=== PATIENT | female | born 1990 | race Hispanic/Latino ===

== ENCOUNTER 2018-07-16 22:05 | Day surgery (SDC) | payer OTHER ==
[2018-07-16 23:17] VITALS: BP 102/59; TEMP 98.9; BMI 28.0
[2018-07-17 01:03] LABS: #Basophils 0.1 thou/uL (0.0-0.2); #Eosinphils 0.3 thou/uL (0.0-0.7); #Lymphocytes 1.6 thou/uL (1.20-3.40); #Monocytes 0.6 thou/uL (0.11-0.59); #Neutrophils 9.3 thou/uL (1.40-6.50); %Basophils 0.4 % (0.0-1.0); %Eosinophils 2.9 % (0.0-10.0); %Lymphocytes 13.2 % (21.0-51.0); %Neutrophils 78.4 % (42.0-75.0); Mean Corpuscular HGB CONC 35.2 g/dL (32.0-36.0); Mean Corpuscular Hemoglobin 31.3 pg (27.0-31.0); Mean Corpuscular Volume 88.9 fL (78.0-98.0); Mean Platelet Volume 8.4 fL (7.4-10.4); Platelet Count 225 thou/uL (130-400); RBC Distribution Width 12.5 % (11.5-14.5); Red Blood Cell (RBC) Count 3.83 mill/uL (4.20-5.40); White Blood Cell (WBC) Count 11.9 thou/uL (4.8-10.8)
[2018-07-17 01:27] LABS: ALT (SGPT) Less than 7 U/L (8-55); AST (SGOT) 13 U/L (5-34); Albumin 3.3 g/dL (3.5-5.0); Alkaline Phosphatase 66 U/L (40-150); Anion Gap 11 mmol/L (10-20); BUN (Urea Nitrogen) 8 mg/dL (7.0-18.7); Bilirubin, Total 0.3 mg/dL (0.2-1.2); Calc. Creatinine Clearance 169 mL/min (70-130); Calcium 8.7 mg/dL (7.8-10.44); Carbon Dioxide 22 mmol/L (22-29); Chloride 106 mmol/L (98-107); Estimated GFR-MDRD Greater than 90; Globulin 3.1 g/dL (2.4-3.5); Glucose 97 mg/dL (70-105); Lipase 15 U/L (8-78); Potassium 3.8 mmol/L (3.5-5.1); Protein, Total 6.4 g/dL (6.0-8.3); Sodium 135 mmol/L (136-145)
--- NOTE | 2018-07-17 11:38 | ULT ---
PRELIMINARY REPORT/[facility]/EMERGENTY AFTER-HOURS PROCEDURE US Abdomen Complete EXAM DATE/TIME: 07/17/2018 12:44 AM CLINICAL HISTORY: 27 years old, female; Pain and signs and symptoms; Nausea and vomiting; Abdominal pain; Epigastric; P regnant; Patient HX: Epigastric pain, n/v; Additional info: Patient 24 wks TECHNIQUE: Real-time ultrasound of the abdomen with image documentation. COMPARISON: No relevant prior studies available. FINDINGS: Liver: Normal. No mass. Gallbladder: Normal. No gallstones. There is not gallbladder wall thickening. Common bile duct: Normal. No stones. No dilation. Pancreas: Normal. No ductal dilation. Kidneys: Normal. No mass. No hydronephrosis. Spleen: Normal. No splenomegaly. Aorta: Normal. No aneurysm. Inferior vena cava: Normal. IMPRESSION: No acute findings. Thank you for allowing us to participate in the care of your patient. Dictated and Authenticated by: Moe Andrade MD 07/17/2018 2:04 AM Central Time ([place] & [place]) FINAL REPORT EMERGENT AFTER HOURS STUDY COMPLETE ABDOMEN ULTRASOUND: 07/17/2018 12:45 a.m. FINDINGS: No evidence of gallstones or other significant acute process. Agree with [facility]. POS: [facility]
--- NOTE | 2018-07-20 02:02 | PRG ---
DATE OF SERVICE: 07/16/2018 PRIMARY OB: Devang Copeland M.D. CHIEF COMPLAINT: Abdominal pain. HISTORY OF PRESENT ILLNESS: The patient is a 27-year-old female with an intrauterine at 24 weeks who is presenting to Labor and Delivery with acute onset of epigastric pain with nausea and vomiting. The patient reports that she has had similar symptoms with previous pregnancies and is unsure what she should be concerned. The patient denies uterine contractions or other lower abdomin al pain. Pain is reported to be in her epigastric to right upper quadrant area and radiates to her b ack. The patient denies fever, headache, chest pain, shortness of breath, diarrhea, constipation, hi p problems, knee problems, or muscle weakness. PAST MEDICAL HISTORY: Negative. PAST SURGICAL HISTORY: Noncontributory. The patient still has a gallbladder. ALLERGIES: No known drug allergies. MEDICATIONS: vitamins. PHYSICAL EXAMINATION: VITAL SIGNS: Blood pressure 102/59, heart rate 63, temperature 98.9. GENERAL: She appeared to be in no acute distress. She is alert and oriented, cooperative and pleasa nt to interact with. HEENT: Normocephalic, atraumatic. LUNGS: Clear. HEART: Regular rate and rhythm. ABDOMEN: The patient has some epigastric and right upper quadrant tenderness to deep palpation. Abd omen is soft. No tenderness in her lower abdomen or inguinal region. CARDIOVASCULAR: Heart has regular rate and rhythm. heart tracing demonstrated a fetus with baseline in the 130s with moderate long-term variabilit y, appropriate for 24-week gestation. Tocometer was absent with contractions. Right upper quadrant ultrasound was performed showing no evidence of gallstones or the gallbladder di sease. LFTs within normal limits as well as alkaline phosphatase. Amylase and lipase are also within normal limits. ASSESSMENT AND PLAN: Patient is a 27-year-old female with some acute onset of abdominal pain that byrd s spontaneously resolved, here with evaluation. She denies any abdominal pain at reevaluation. Ther e is no evidence of gallstones at this time. The patient has been given labor precautions an d food restrictions. The patient has instructions to follow up with Dr. Devang Copeland as scheduled.
== END 2018-07-17 02:06 | disposition home or self-care (01) ==
LOC: L&D/OP 22:05
PROVIDERS: ATTEND Family Medicine
DX: O99.89 Other specified diseases and conditions complicating pregnancy, childbirth and the puerperium (principal); R10.13 Epigastric pain; Z3A.24 24 weeks gestation of pregnancy; Z79.899 Other long term (current) drug therapy
CPT/HCPCS: 36415; 76705; 80053; 82150; 83690; 85025

== ENCOUNTER 2018-09-13 07:27 | Outpatient (CLI) | payer OTHER ==
--- NOTE | 2018-09-13 08:31 | ULT ---
OB ULTRASOUND LIMITED: INDICATION: Low-lying placenta. FINDINGS: Intrauterine gestation in a cephalad orientation is documented. No evidence of placenta previa. Cer vical length is approximately 4 cm. The visualized inferior aspect of the placenta is located approx imately 3 cm from the internal os. cardiac activity is documented ranging 126-134 b.p.m. IMPRESSION: Cephalad orientation of the fetus. There is no placenta previa. The imaged inferior aspect of the p lacenta is approximately 3 cm from the internal os. Cervical length is approximately 4 cm. As necessary, imaging followup may be obtained. POS: [facility]
== END 2018-09-13 07:28 | disposition home or self-care (01) ==
LOC: BICULT 07:27
PROVIDERS: ATTEND Family Medicine
DX: O44.42 Low lying placenta NOS or without hemorrhage, second trimester (principal)
CPT/HCPCS: 76815

== ENCOUNTER 2018-11-03 21:00 | Inpatient (IN) | payer MEDICAID, OTHER, SELFPAY ==
[2018-11-08] MEDS ORDERED: Penicillin G Potassium 5 MILL.UNITS in Sodium Chloride 0.9% 100 ML IVPB SCH (06:16)
[2018-11-08] MEDS ORDERED: Lidocaine 1% (PF) 30 ML VIAL SC PRN (06:16)
[2018-11-08] MEDS ORDERED: Diphenoxylate HCl/Atropine Tablet PO PRN (06:16)
[2018-11-08] MEDS ORDERED: HYDROcodone/Acetaminophen 5/325 mg Tablet PO PRN (06:16)
[2018-11-08] MEDS ORDERED: Butorphanol Tartrate 1 MG/ML VIAL SLOW IVP PRN (06:16)
[2018-11-08] MEDS ORDERED: Misoprostol 200 MCG TAB PR PRN (06:16)
[2018-11-08] MEDS ORDERED: Carboprost 250 MCG/ML AMP IM PRN (06:16)
[2018-11-08] MEDS ORDERED: Ibuprofen 800 MG TAB PO PRN (06:16)
[2018-11-08] MEDS ORDERED: NS / Oxytocin 40 units/1000ml 1,000 ML IV PRN (06:16)
[2018-11-08] MEDS ORDERED: Methylergonovine 0.2 MG/ML VIAL IM PRN (06:16)
[2018-11-08] MEDS ORDERED: Ondansetron PF 4 MG/2 ML Vial IVP PRN (06:16)
[2018-11-08] MEDS ORDERED: NS w/ Oxytocin 10 units 500 ML IV SCH ×2 (06:16)
[2018-11-08 06:17] VITALS: BMI 31.3
[2018-11-08 06:40] LABS: Hemoglobin 12.6 g/dL (12.0-16.0); Mean Corpuscular HGB CONC 33.6 g/dL (32.0-36.0); Mean Corpuscular Volume 86.3 fL (78.0-98.0); Mean Platelet Volume 9.1 fL (7.4-10.4); Platelet Count 218 thou/uL (130-400); Red Blood Cell (RBC) Count 4.36 mill/uL (4.20-5.40)
[2018-11-08] MEDS: Lactated Ringer's 1,000 ML IV SCH ×2 (06:40→10:06)
[2018-11-08 07:17] LABS: HBSAg Index 0.23 S/CO (0-0.99); Hep B Surf Ag Non-Reactive S/CO (NonReactive); Syphilis Antibody Nonreactive (Nonreactive); Syphilis Antibody Index 0.06 S/CO (<1.00 Non-Reactive)
[2018-11-08] MEDS: Penicillin G 2.5 MILL.units 2.5 MILL.UNITS in Premix Bag 1 BAG IVPB SCH ×2 (10:07→14:06)
--- NOTE | 2018-11-08 16:52 | PDOC.EVN ---
Event Note - Event Note Event Note: CTSP by labor nurses for bleeding. S/p reportedly uncomplicated by Dr. Cpoeland. BP= 109/69, P= 82. Fundus below umbilicus with uterine massage. Bimanual exam shows clot and what looks like small placental fragment in AMELIA, bleeding has markedly decreased. QBL= 110+ cc. Cytotec 800 mcg and Methergine .[address] Copeland. Will T&C x2 units and observe closely. Consider EUA and D&C if bleeding persists.
[2018-11-08] MEDS ORDERED: Fentanyl 100 MCG/2 ML VIAL ONE (17:33)
[2018-11-08] MEDS ORDERED: KETAMINE 100 MG/ML (5ML VIAL) ONE (17:34)
[2018-11-08] MEDS ORDERED: Oxytocin 10 UNITS/ML VIAL ONE (18:12)
[2018-11-08] MEDS ORDERED: Tranexamic Acid 1,000 MG/10 ML VIAL ONE (18:14)
[2018-11-08] MEDS ORDERED: Promethazine HCl 25 MG/ML VIAL SLOW IVP PRN (18:43)
[2018-11-08] MEDS ORDERED: Promethazine HCl 25 MG/ML VIAL IM PRN (18:43)
[2018-11-08] MEDS ORDERED: Ondansetron HCl/PF 4 MG/2 ML Vial IVP PRN (18:43)
[2018-11-08] MEDS ORDERED: Glycopyrrolate 0.2 MG/ML 5 ML SYRINGE ONE (18:46)
[2018-11-08] MEDS ORDERED: Dexamethasone 20 MG/5 ML VIAL ONE (18:46)
[2018-11-08] MEDS ORDERED: Succinylcholine Chloride 20 MG/ML 10 ml SYRINGE FS ONE (18:46)
[2018-11-08] MEDS ORDERED: PHENYLEPHRINE-NS 100 MCG/ML 10 ML SYRINGE ONE (18:46)
[2018-11-08] MEDS ORDERED: CEFAZOLIN 1 GM VIAL ONE (18:46)
[2018-11-08] MEDS ORDERED: Sterile Water 10 ML VIAL ONE (18:46)
[2018-11-08] MEDS ORDERED: Ondansetron PF 4 MG/2 ML Vial ONE (18:46)
[2018-11-08] MEDS ORDERED: ePHEDrine/0.9% NaCl/PF SYRINGE 50 mg/10 ml ONE (18:46)
[2018-11-08] MEDS ORDERED: PROPOFOL 200 MG/20 ML VIAL ONE (18:46)
[2018-11-08] MEDS ORDERED: Lidocaine 1% PF 5 ML VIAL ONE (18:46)
[2018-11-08] MEDS ORDERED: Rocuronium Bromide 10 MG/ML (10ML VIAL) ONE (18:46)
[2018-11-08 19:23] LABS: Hemoglobin 11.5 g/dL (12.0-16.0)
[2018-11-09] MEDS ORDERED: Benzocaine/Menthol 20-0.5% 60 ML CAN TOP PRN (00:21)
[2018-11-09] MEDS ORDERED: NS / Oxytocin 40 units/1000ml 1,000 ML IV SCH (00:21)
[2018-11-09] MEDS ORDERED: Milk Of Magnesia 30 ML UDCUP PO PRN (00:21)
[2018-11-09] MEDS ORDERED: HYDROcodone/Acetaminophen 5/325 mg Tablet PO PRN ×2 (00:21)
[2018-11-09] MEDS ORDERED: Lanolin Ointment 7 GM TUBE TOP PRN (00:21)
[2018-11-09] MEDS ORDERED: Bisacodyl 10 MG SUPP PR PRN (00:21)
[2018-11-09] MEDS ORDERED: Ondansetron PF 4 MG/2 ML Vial IVP PRN (00:21)
[2018-11-09] MEDS ORDERED: Ferrous Sulfate 325 MG TAB PO SCH ×2 (00:30→17:00)
[2018-11-09] MEDS ORDERED: Docusate Calcium (SURFAK) 240 MG CAP PO SCH ×2 (00:30→21:00)
[2018-11-09] MEDS: Misoprostol 200 MCG TAB PO SCH ×2 (00:35→05:07)
[2018-11-09] MEDS: Penicillin G 2.5 MILL.units 2.5 MILL.UNITS in Premix Bag 1 BAG IVPB SCH (00:58)
[2018-11-09] MEDS: Lactated Ringer's 1,000 ML IV SCH (00:59)
[2018-11-09] MEDS ORDERED: Ibuprofen 800 MG TAB PO SCH (01:00)
[2018-11-09] MEDS ORDERED: Misoprostol 200 MCG TAB ONE (04:41)
[2018-11-09] MEDS: Ibuprofen 800 MG TAB PO SCH ×2 (05:06→14:38)
[2018-11-09 06:00] LABS: Mean Corpuscular HGB CONC 34.1 g/dL (32.0-36.0); Mean Corpuscular Hemoglobin 29.7 pg (27.0-31.0); Mean Platelet Volume 9.4 fL (7.4-10.4); Platelet Count 195 thou/uL (130-400); Red Blood Cell (RBC) Count 3.71 mill/uL (4.20-5.40); White Blood Cell (WBC) Count 16.2 thou/uL (4.8-10.8)
[2018-11-09] MEDS ORDERED: Prenatal Vitamin 1 TAB PO SCH (09:00)
[2018-11-09 11:46] VITALS: BP 82/50; TEMP 98.5
[2018-11-09] MEDS ORDERED: Adacel (T-DAP) 0.5 ML SYRINGE IM ONE (18:30)
--- NOTE | 2018-11-10 00:13 | OP ---
DATE OF PROCEDURE: 11/08/2018 PREOPERATIVE DIAGNOSES: 1. Delayed hemorrhage. 2. Retained placental fragments. POSTOPERATIVE DIAGNOSES: 1. Delayed hemorrhage. 2. Retained placental fragments. PROCEDURES PERFORMED: 1. D and C. 2. Manual exploration of the uterus. DESCRIPTION OF PROCEDURE: After informed consent was obtained from the patient , she was taken to the operating room where general anesthesia was administered. She was prepped and draped in the usual sterile fashion. She had previously been placed in the dorsal lithotomy position. A weighted vaginal speculum was inserted. A right angle retractor was used to visualize the cervix. The anterior lip of the cervix was grasped with a ring forceps. A large Bovine curette was used to curette each quadrant of the uterus with return of a large 3 to 4 cm piece of placenta and a few much smaller fragments. Once this was completed, the uterus was manually explored and no other retained fragments were encountered. Hemabate x1 was given intraoperatively along with 1 g of TXA. Intraoperative antibiotics included Ancef 2 g x1 and gentamicin 80 mg IV x1. EBL was 150. Uterine contents were sent to pathology for review. She tolerated the procedure well and suffered no acute complications. She was taken to the recovery room in stable condition. Job ID: [id number] [facility]
--- NOTE | 2018-11-22 09:09 | PQF ---
RICK PIERRE ROLAND R MD [id number] [address] [place] [address] [id number] CLINICAL DOCUMENTATION CLARIFICATION FORM: POST DISCHARGE DATE: 11/22/18 ATTN: Dr. ALVARADO Please exercise your independent, professional judgment in responding to the clarification form. Clinical indicators are provided on the bottom of this form for your review Please check appropriate box(s): [ X ] Acute blood loss anemia [ ] Post-op anemia related to acute blood loss [ ] Anemia: [ ] Aplastic [ ] Nutritional [ ] Drug induced (specify) ___ [ ] Hemolytic [ ] Hereditary [ ] Acquired [ ] Autoimmune [ ] Non-autoimmune [ ] Enzyme disorder [ ] Chronic Anemia: [ ] Blood loss [ ] Hemolytic [ ] Simple [ ] Due to Vitamin B12 Deficiency [ ] Other [ ] Anemia of Chronic Disease (please specify) [ ] Other diagnosis [ ] Unable to determine In addition, please specify: Present on Admission (POA): [ ] Yes [ X ] No [ ] Unable to determine For continuity of documentation, please document condition throughout progress notes and discharge summary. Thank You. CLINICAL INDICATORS - SIGNS / SYMPTOMS / LABS Post delivery hemorrhage Low hemoglobin 11/08/18 -- 11.5; 11/09/18-- 11.0 Low hematocrit 11/08/18 -- 34.6; 11/09/18 -- 32.3 Estimated blood loss during deliver 300 ml RISK FACTORS vaginal delivery post delivery hemorrhage TREATMENTS: transfusion PRBC POST DELIVERY D&C for retained placental fragment (This form is maintained as a part of the permanent medical record) 2014 [employer] All Rights Reserved [email or web address] [phone] [email or web address]
== END 2018-11-09 18:35 | disposition home or self-care (01) | DRG 797 ==
LOC: L&D 11-08 05:57 → 3SW 11-09 00:58
PROVIDERS: ADMIT Family Medicine; ATTEND Family Medicine
PROC: 10907ZC Drainage of Amniotic Fluid, Therapeutic from Products of Conception, Via Natural or Artificial Opening (ICD-10-PCS; principal; 2018-11-08)
PROC: 10D17ZZ Extraction of Products of Conception, Retained, Via Natural or Artificial Opening (ICD-10-PCS; 2018-11-08)
PROC: 10E0XZZ Delivery of Products of Conception, External Approach (ICD-10-PCS; 2018-11-08)
PROC: 3E033VJ Introduction of Other Hormone into Peripheral Vein, Percutaneous Approach (ICD-10-PCS; 2018-11-08)
PROC: 30233N1 Transfusion of Nonautologous Red Blood Cells into Peripheral Vein, Percutaneous Approach (ICD-10-PCS; 2018-11-08)
DX: O99.824 Streptococcus B carrier state complicating childbirth (principal); D62 Acute posthemorrhagic anemia; Z37.0 Single live birth; Z3A.40 40 weeks gestation of pregnancy; O72.2 Delayed and secondary postpartum hemorrhage; Z23 Encounter for immunization
CPT/HCPCS: 36415; 36430; 85027; 86780; 86850; 86900; 86901; 87340; 88305; A4216; J0595; J0690; J1100; J2001; J2210; J2405; J2540; J2590; J2704; J3010; J3490; J7050; P9016

== ENCOUNTER 2024-09-03 15:17 | Emergency (ER) | payer MEDICAID, SELFPAY ==
[2024-09-03] MEDS ORDERED: Boostrix 0.5 ML (Tdap) VIAL (>/=7 yrs of age) ONE (15:55)
[2024-09-03] MEDS ORDERED: Lidocaine 1% w/Epinephrine 1:100K 20 ML VIAL ONE (16:05)
== END 2024-09-03 17:23 | disposition home or self-care (01) ==
LOC: ERS 15:17
DX: S61.412A Laceration without foreign body of left hand, initial encounter (principal); W25.XXXA Contact with sharp glass, initial encounter
CPT/HCPCS: 12001; 90471; 90715

== ENCOUNTER 2024-09-12 11:08 | Emergency (ER) | payer SELFPAY | END 2024-09-12 11:43 | disposition home or self-care (01) | LOC: ERS 11:08 | DX: S61.411D Laceration without foreign body of right hand, subsequent encounter (principal); Z75.8 Other problems related to medical facilities and other health care ==